=== PATIENT | female | born 1990 | race African-American/Black ===

== ENCOUNTER 2017-03-27 08:02 | Emergency (ER) | payer MEDICAID, OTHER ==
[~2017-03-27] VITALS: Ht 170.2 cm; Wt 100.0 kg
[2017-03-27 08:03] VITALS: BP 143/70; PULSE 78; RESP 20; TEMP 98.6; O2SAT 100
[2017-03-27] MEDS ORDERED: SODIUM CHLOR 0.9% 1000 ML INJ 1,000 ML IV ONE (08:21)
[2017-03-27 08:25] VITALS: RESP 16; O2SAT 100
[2017-03-27] MEDS ORDERED: ACETAMINOPHEN 325 MG TAB PO ONE (08:30)
[2017-03-27] MEDS ORDERED: diphenhydrAMINE HCL 50 MG/ML VIAL IVP ONE (08:30)
[2017-03-27] MEDS ORDERED: METOCLOPRAMIDE HCL 10 MG/2 ML VIAL IVP ONE (08:30)
[2017-03-27] MEDS ORDERED: SODIUM CHLORIDE 0.9% FLUSH 10 ML FLUSH IVF PRN (08:30)
--- NOTE | 2017-03-27 09:22 | PD ---
HPI Chief Complaint: Headache Time Seen by Provider: 08:15 Travel History International Travel<30 days: No Contact w/Intl Traveler<30days: No Traveled to known affect area: No History of Present Illness HPI 27-year-old has a right frontal headache. She woke up with it. Duration has been about 3-4 hours. She has a history of migraines and states this is not the worst headache she is experiencing. She's had no visual change. No vomiting. No neck stiffness reported. She reports she is 8 weeks . The pain is constant and moderate. Pnlg-hss-ivdsixn medications were not used. She's had no vaginal bleeding or discharge. Throbbing quality. No radiation. PFSH Past Medical History Medical History: Denies Significant Hx ?: LMP: JANUARY 29 2017 : 3 Para: 2 Miscarriage: 1 Past Surgical History Other Surgery: Yes (CYST EXCISION ANT. NECK) Social History Alcohol Use: No Tobacco Use: No Substance Use: No Allergies-Medications (Allergen,Severity, Reaction): Coded Allergies: No Known Allergies (Verified , 03/27/17) Reported Meds & Prescriptions Reported Meds & Active Scripts Active No Active Prescriptions or Reported Medications Review of Systems Except as stated in HPI: all other systems reviewed are Neg General / Constitutional: No: Fever Physical Exam Narrative GENERAL: 27-year-old female pleasant well-nourished well-developed no acute distress SKIN: Focused skin assessment warm/dry. HEAD: Atraumatic. Normocephalic. EYES: Pupils equal and round. No scleral icterus. No injection or drainage. ENT: No nasal bleeding or discharge. Mucous membranes pink and moist. NECK: Trachea midline. No JVD. CARDIOVASCULAR: Regular rate and rhythm. No murmur appreciated. RESPIRATORY: No accessory muscle use. Clear to auscultation. Breath sounds equal bilaterally. GASTROINTESTINAL: Abdomen soft, non-tender, nondistended. Hepatic and splenic margins not palpable. MUSCULOSKELETAL: No obvious deformities. No clubbing. No cyanosis. No edema. NEUROLOGICAL: Awake and alert. No obvious cranial nerve deficits. Motor grossly within normal limits. Normal speech. PSYCHIATRIC: Appropriate mood and affect; insight and judgment normal. Data Data Last Documented VS Vital Signs Date Time Temp Pulse Resp B/P Pulse Ox O2 Delivery O2 Flow Rate FiO2 03/27/17 08:25 16 100 Room Air 03/27/17 08:03 98.6 78 143/70 Vital signs reviewed Orders Ecg Monitoring (03/27/17 08:21) Iv Access Insert/Monitor (03/27/17 08:21) Oximetry (03/27/17 08:21) Sodium Chloride 0.9% Flush (Ns Flush) (03/27/17 08:30) Acetaminophen (Tylenol) (03/27/17 08:30) Diphenhydramine Inj (Benadryl Inj) (03/27/17 08:30) Metoclopramide Inj (Reglan Inj) (03/27/17 08:30) Sodium Chlor 0.9% 1000 Ml Inj (Ns 1000 M (03/27/17 08:21) MDM Medical Decision Making Medical Screen Exam Complete: Yes Emergency Medical Condition: Yes Medical Record Reviewed: Yes Differential Diagnosis Migraine, tension headache, cavernous sinus thrombosis, intracranial hemorrhage , meningitis Narrative Course Patient received abortive therapy here and had resolution of pain. Given that the patient states this headache is similar to priors and not as severe hypercoagulable-related headache in the setting of is considered sufficiently low pretest probability to avoid MRV and other high utilization studies. Patient has follow-up with Dr. Whaley of obstetrics in 2 days. Return precautions discussed. Patient was advised to avoid NSAIDs during . Tylenol okay. She knows she can return here any time if needed. Diagnosis Primary Impression: Headache Qualified Code: G44.89 - Other headache syndrome Referrals: DR WHALEY 2 days Additional Instructions: You have a choice when it comes to health care, and we are glad that you chose [facility]. Hopefully, we have met your expectations on today's visit. You are welcome to return to [facility] at any time, as we are committed to meeting the health care needs of our community. Med/Other Pt SpecificInfo: Prescription(s) given Scripts Acetaminophen (Tylenol)325 Mg [id number] Mg PO Q6H PRN (HEADACHE) #30 CAP Ref 0 Prov:Linwood Bradley MD 03/27/17 Multivit-Min W/Fe-FA ( Forte)1 Tab Tab1 Tab PO DAILY 90 Days Ref 2 Prov:Linwood Bradley MD 03/27/17 Disposition: 01 DISCHARGE HOME Condition: Stable Linwood Bradley MD March 27, 2017 09:22
[2017-03-27] MEDS ORDERED: ACET1CAP18 PO (09:28)
[2017-03-27] MEDS ORDERED: PRENTAB36 PO (09:28)
[2017-03-27 10:41] VITALS: RESP 16
== END 2017-03-27 10:53 | disposition home or self-care (01) ==
LOC: NEPC 08:02
DX: R51 Headache (principal)
CPT/HCPCS: 96361; 96374; 96375; 99283; J1200; J2765; J7030

== ENCOUNTER 2017-05-03 19:30 | Emergency (ER) | payer MEDICAID, OTHER ==
[~2017-05-03] VITALS: Ht 170.2 cm; Wt 97.7 kg
[~2017-05-03 19:30] MED LIST: ACET1CAP18 PO; PRENTAB36 PO
[2017-05-03 19:44] VITALS: BP 117/80; PULSE 115; RESP 20; TEMP 99.7; O2SAT 97
[2017-05-03] MEDS ORDERED: ACETAMIN 325 MG/BUTALBITAL 50 MG/CAFFEINE 40 MG TAB PO ONE (20:30)
[2017-05-03] MEDS ORDERED: SODIUM CHLORID 0.9% 500 ML INJ 500 ML IV ONE (20:30)
[2017-05-03] MEDS ORDERED: ONDANSETRON HCL 4 MG/2 ML VIAL IV PUSH ONE (20:30)
--- NOTE | 2017-05-03 20:32 | PD ---
HPI Chief Complaint: Headache Time Seen by Provider: 20:08 Travel History International Travel<30 days: No Contact w/Intl Traveler<30days: No Traveled to known affect area: No History of Present Illness HPI 27-year-old female complains of headache, nausea vomiting. Patient has history of migraine. Patient is 3 months . Patient has been seen by OB physician Dr. Aranda. Patient states that she started having headache this morning. Patient states that she has mild photophobia. Patient states that she has intermittent nausea vomiting with headache. Patient states that she feeling scratchy throat since last night. Patient states that she has mild nasal congestion today. Patient denies any fever chills. Patient denies any neck pain. Patient denies any coughing. Patient denies abdominal pain. Patient states that she has mild intermittent pelvic cramping with spotting since last week. Patient was seen at [facility] in [facility] and had blood tests and ultrasound done. Patient was seen in the office by Dr. Carty since then. Patient stated that nothing new with the pelvic cramping or vaginal spotting. Patient denies dysuria or frequency. PFSH Past Medical History ?: LMP: JANUARY 28 2017 : 3 Para: 2 Miscarriage: 1 Past Surgical History Other Surgery: Yes (CYST EXCISION ANT. NECK) Social History Alcohol Use: No Tobacco Use: No Substance Use: No Allergies-Medications (Allergen,Severity, Reaction): Coded Allergies: No Known Allergies (Verified , 03/27/17) Reported Meds & Prescriptions Reported Meds & Active Scripts Active Tylenol (Acetaminophen) 325 Mg Cap 650 Mg PO Q6H PRN Forte ( Multivit-Min W/Fe-FA) 1 Tab Tab 1 Tab PO DAILY 90 Days Review of Systems General / Constitutional: No: Fever Eyes: Positive: Photophobia, No: Visual changes HENT: Positive: Headaches Cardiovascular: No: Chest Pain or Discomfort Respiratory: No: Shortness of Breath Gastrointestinal: Positive: Nausea, Vomiting, No: Abdominal Pain Genitourinary: No: Dysuria Musculoskeletal: No: Pain Skin: No Rash Neurologic: No: Weakness Psychiatric: No: Depression Endocrine: No: Polydipsia Hematologic/Lymphatic: No: Easy Bruising Physical Exam Narrative GENERAL: Well-nourished, well-developed patient. SKIN: Focused skin assessment warm/dry. HEAD: Normocephalic. EYES: No scleral icterus. No injection or drainage. TM: Clear. Throat: Mild erythematous. No exudate or edema. NECK: Supple, trachea midline. No JVD or lymphadenopathy. No meningismus CARDIOVASCULAR: Regular rate and rhythm without murmurs, gallops, or rubs. RESPIRATORY: Breath sounds equal bilaterally. No accessory muscle use. GASTROINTESTINAL: Abdomen soft, non-tender, nondistended. MUSCULOSKELETAL: No cyanosis, or edema. BACK: Nontender without obvious deformity. No CVA tenderness. Neurologic exam normal. Data Data Last Documented VS Vital Signs Date Time Temp Pulse Resp B/P Pulse Ox O2 Delivery O2 Flow Rate FiO2 05/03/17 19:44 99.7 115 20 117/80 97 Orders Sodium Chlorid 0.9% 500 Ml Inj (Ns 500 M (05/03/17 20:30) Ondansetron Inj (Zofran Inj) (05/03/17 20:30) Zzhl-Dtejm-Xgdu 325-50-40 Mg (Fioricet 3 (05/03/17 20:30) Group A Rapid Strep Screen (05/03/17 20:26) Strep Culture (Group A) (05/03/17 20:30) MDM Medical Decision Making Medical Screen Exam Complete: Yes Emergency Medical Condition: Yes Interpretation(s) 21:26 PM. Strep screen negative. Differential Diagnosis Differential diagnosis including tension headache, plus headache, migraine headache, viral syndrome. Patient also complains of scratchy throat. Narrative Course 27-year-old female with headache and nausea vomiting and photophobia. History migraine. Patient's 3 months . Normal saline solution 500 cc IV bolus. Zofran 4 mg IV. Fioricet one tablet by mouth given. Diagnosis Primary Impression: Cephalgia Qualified Code: R51 - Nonintractable episodic headache, unspecified headache type Additional Impression: Pharyngitis Qualified Code: J02.9 - Pharyngitis, unspecified etiology Patient Instructions: General Instructions Additional Instructions: Take medications as directed. Tylenol for fever. Follow-up with personal physician and OB physician. Return if persistent problem or worse. Med/Other Pt SpecificInfo: Prescription(s) given Scripts Promethazine (Phenergan)25 Mg Asmhll11 Mg PO Q6H PRN (NAUSEA OR VOMITING) #12 TAB Ref 0 Prov:Fritz Ott MD 05/03/17 Ccsgrrrpkj-Dwsxkntdmteda-Oidlwyup (Fioricet)50-300-40 Mg Cap1-2 Cap PO Q6H PRN ( HEADACHE) #30 CAP Ref 0 Prov:Fritz Ott MD 05/03/17 Disposition: 01 DISCHARGE HOME Condition: Stable Fritz Ott MD May 03, 2017 20:32
[2017-05-03] MEDS ORDERED: PROM25TA10 PO (21:29)
[2017-05-03] MEDS ORDERED: BUTA1CAP PO (21:29)
[2017-05-03 21:51] VITALS: BP 122/74
== END 2017-05-03 21:54 | disposition home or self-care (01) ==
LOC: PHED 19:30
DX: R51 Headache (principal); J02.9 Acute pharyngitis, unspecified
CPT/HCPCS: 87081; 87880; 96361; 96374; 99284; J2405; J7040

== ENCOUNTER 2017-05-19 22:52 | Emergency (ER) | payer MEDICAID ==
[~2017-05-19] VITALS: Ht 170.2 cm; Wt 99.2 kg
[~2017-05-19 22:52] MED LIST changes: +BUTA1CAP PO; +PROM25TA10 PO
[2017-05-19 22:59] VITALS: BP 109/71; PULSE 85; RESP 18; TEMP 98.3; O2SAT 98
[2017-05-19] MEDS ORDERED: PREN1TAB60 PO (23:22)
--- NOTE | 2017-05-20 00:38 | PD ---
HPI Chief Complaint: Pain: Acute or Chronic Time Seen by Provider: 00:34 Travel History International Travel<30 days: No Contact w/Intl Traveler<30days: No Traveled to known affect area: No History of Present Illness HPI The patient noted a little painful lump on her left anterior tibial area, just medial to the tibia for the past one hour. She is worried this might be a blood clot. PFSH Past Medical History Tetanus Vaccination: > 5 Years Influenza Vaccination: No ?: LMP: 03=16-17 : 3 Para: 2 Miscarriage: 1 Past Surgical History Other Surgery: Yes (CYST EXCISION ANT. NECK) Social History Alcohol Use: No Tobacco Use: No Substance Use: No Allergies-Medications (Allergen,Severity, Reaction): Coded Allergies: No Known Allergies (Verified , 05/19/17) Reported Meds & Prescriptions Reported Meds & Active Scripts Active Reported Formula Tablet ( Vits #90/Iron Fum/FA) 1 Each Tablet 1 Tab PO DAILY Review of Systems Except as stated in HPI: all other systems reviewed are Neg Physical Exam Narrative GENERAL: Well-nourished, well-developed patient. SKIN: Focused skin assessment warm/dry. HEAD: Normocephalic. EYES: No scleral icterus. No injection or drainage. NECK: Supple, trachea midline. No JVD or lymphadenopathy. CARDIOVASCULAR: Regular rate and rhythm without murmurs, gallops, or rubs. RESPIRATORY: Breath sounds equal bilaterally. No accessory muscle use. GASTROINTESTINAL: Abdomen soft, non-tender, nondistended. MUSCULOSKELETAL: No cyanosis, or edema. There is a 2 cm diameter bruise on the left upper lower leg just medial to the tibia. No calf vein tenderness present and no cord is palpated in the calf. It is slightly tender and there is darkening of the skin which appears to be a small hematoma BACK: Nontender without obvious deformity. No CVA tenderness. Data Data Last Documented VS Vital Signs Date Time Temp Pulse Resp B/P Pulse Ox O2 Delivery O2 Flow Rate FiO2 05/19/17 22:59 98.3 85 18 109/71 98 MDM Medical Decision Making Medical Screen Exam Complete: Yes Emergency Medical Condition: Yes Medical Record Reviewed: Yes Differential Diagnosis Contusion skin, deep vein thrombosishighly unlikely, lesion of skin Narrative Course This appears to be a contusion of the skin. The patient denies any trauma but she may have bumped it or it could be simply a ruptured blood vessel. Diagnosis Primary Impression: Contusion of left lower leg Additional Instructions: This appears to be a contusion on the left lower leg. It could also be a small ruptured blood vessel. It is not a deep vein clot in this area. Follow-up with your primary care physician this week. No further treatment is needed other than simply watching how it develops. Med/Other Pt SpecificInfo: No Change to Meds Disposition: 01 DISCHARGE HOME Condition: Stable Lucien Leung MD May 20, 2017 00:38
== END 2017-05-20 00:45 | disposition home or self-care (01) ==
LOC: PHED 22:52
DX: S80.12XA Contusion of left lower leg, initial encounter (principal); X58.XXXA Exposure to other specified factors, initial encounter
CPT/HCPCS: 99281

== ENCOUNTER → 2017-06-10 | Outpatient (CLI) | payer MEDICAID ==
[~2017-06-10] MED LIST changes: -ACET1CAP18 PO; -BUTA1CAP PO; +PREN1TAB60 PO; -PRENTAB36 PO; -PROM25TA10 PO
== END ==
LOC: HPND 08:09
PROVIDERS: ATTEND Obstetrics & Gynecology
DX: O35.1XX0 Maternal care for (suspected) chromosomal abnormality in fetus, not applicable or unspecified (principal); O30.042 Twin pregnancy, dichorionic/diamniotic, second trimester; Z3A.19 19 weeks gestation of pregnancy
CPT/HCPCS: 76811; 76817

== ENCOUNTER → 2017-07-09 | Outpatient (CLI) | payer MEDICAID ==
[~2017-07-09] MED LIST changes: +BUTA1CAP5 PO; +REGL10TA5 PO
== END ==
LOC: HPND 13:11
PROVIDERS: ATTEND Obstetrics & Gynecology
DX: O30.042 Twin pregnancy, dichorionic/diamniotic, second trimester (principal); O35.1XX2 Maternal care for (suspected) chromosomal abnormality in fetus, fetus 2; Z3A.00 Weeks of gestation of pregnancy not specified
CPT/HCPCS: 76816

== ENCOUNTER 2017-07-29 12:53 | Emergency (ER) | payer MEDICAID ==
[~2017-07-29] VITALS: Ht 170.2 cm; Wt 102.7 kg
[~2017-07-29 12:53] MED LIST changes: -BUTA1CAP5 PO; -REGL10TA5 PO
[2017-07-29 12:56] VITALS: BP 127/72; PULSE 96; RESP 18; TEMP 98; O2SAT 98
[2017-07-29] MEDS ORDERED: BUTA1CAP5 PO (13:04)
[2017-07-29] MEDS ORDERED: SODIUM CHLOR 0.9% 1000 ML INJ 1,000 ML IV ONE (13:06)
[2017-07-29] MEDS ORDERED: METOCLOPRAMIDE HCL 10 MG/2 ML VIAL IVP ONE (13:15)
[2017-07-29] MEDS ORDERED: diphenhydrAMINE HCL 50 MG/ML VIAL IVP ONE (13:15)
[2017-07-29] MEDS ORDERED: SODIUM CHLORIDE 0.9% FLUSH 10 ML FLUSH IVF PRN (13:15)
[2017-07-29 13:30] VITALS: O2SAT 99
--- NOTE | 2017-07-29 13:32 | PD ---
HPI Chief Complaint: Headache Time Seen by Provider: 13:06 Travel History International Travel<30 days: No Contact w/Intl Traveler<30days: No Traveled to known affect area: No History of Present Illness HPI 27-year-old female patient with history of migraine headaches, currently 27 weeks with no history of preeclampsia or eclampsia or problems during , also per Dr. Aranda, presents to the ER today because of 3 days history of headaches that is a 8 out of 10. She denies any nausea or vomiting, fevers, stiff neck, or any other symptoms. Modifying Factors: None Associated Signs & Symptoms: Headaches Risk Factors: History of migraine headaches, PFSH Past Medical History Medical History: Denies Significant Hx Tetanus Vaccination: Unknown Influenza Vaccination: No ?: LMP: 01/2017 : 3 Para: 2 Miscarriage: 1 Past Surgical History Other Surgery: Yes (CYST EXCISION ANT. NECK) Social History Alcohol Use: No Tobacco Use: No Substance Use: No Allergies-Medications (Allergen,Severity, Reaction): Coded Allergies: No Known Allergies (Verified , 07/29/17) Reported Meds & Prescriptions Reported Meds & Active Scripts Active Reported Angakiodvc-Wvfedyhymsfad-Waugojmj 50-300-40 Mg Cap 1-2 Cap PO Q6HR PRN Do not exceed 6 capsules/day. Formula Tablet ( Vits #90/Iron Fum/FA) 1 Each Tablet 1 Tab PO DAILY Review of Systems Except as stated in HPI: all other systems reviewed are Neg Physical Exam Narrative GENERAL: Well-developed young gravid -[place] female patient currently in no acute distress. Awake and oriented 3. Sitting in a lighted room comfortably. No photophobia. SKIN: Focused skin assessment warm/dry. HEAD: Atraumatic. Normocephalic. EYES: Pupils equal and round. No scleral icterus. No injection or drainage. ENT: No nasal bleeding or discharge. Mucous membranes pink and moist. NECK: Trachea midline. No JVD. Supple. CARDIOVASCULAR: Regular rate and rhythm. No murmur appreciated. RESPIRATORY: No accessory muscle use. Clear to auscultation. Breath sounds equal bilaterally. GASTROINTESTINAL: Abdomen gravid with uterine fundus well above the umbilicus, non-tender, nondistended. Hepatic and splenic margins not palpable. MUSCULOSKELETAL: No obvious deformities. No clubbing. No cyanosis. No edema. NEUROLOGICAL: Awake and alert. No obvious cranial nerve deficits. Motor grossly within normal limits. Normal speech. PSYCHIATRIC: Appropriate mood and affect; insight and judgment normal. Data Data Last Documented VS Vital Signs Date Time Temp Pulse Resp B/P (MAP) Pulse Ox O2 Delivery O2 Flow Rate FiO2 07/29/17 14:20 83 14 91/58 (69) 100 Room Air 07/29/17 12:56 98.0 Orders Orders Complete Blood Count With Diff (07/29/17 13:06) Comprehensive Metabolic Panel (07/29/17 13:06) Ecg Monitoring (07/29/17 13:06) Iv Access Insert/Monitor (07/29/17 13:06) Oximetry (07/29/17 13:06) Sodium Chloride 0.9% Flush (Ns Flush) (07/29/17 13:15) Diphenhydramine Inj (Benadryl Inj) (07/29/17 13:15) Metoclopramide Inj (Reglan Inj) (07/29/17 13:15) Sodium Chlor 0.9% 1000 Ml Inj (Ns 1000 M (07/29/17 13:06) Ua Includes Microscopic (07/29/17 13:06) Labs Laboratory Tests Test 07/29/17 13:30 White Blood Count 14.4 TH/MM3 Red Blood Count 4.00 MIL/MM3 Hemoglobin 10.8 GM/DL Hematocrit 33.0 % Mean Corpuscular Volume 82.5 FL Mean Corpuscular Hemoglobin 27.0 PG Mean Corpuscular Hemoglobin Concent 32.8 % Red Cell Distribution Width 12.3 % Platelet Count 249 TH/MM3 Mean Platelet Volume 7.6 FL Neutrophils (%) (Auto) 73.7 % Lymphocytes (%) (Auto) 15.9 % Monocytes (%) (Auto) 9.4 % Eosinophils (%) (Auto) 0.6 % Basophils (%) (Auto) 0.4 % Neutrophils # (Auto) 10.5 TH/MM3 Lymphocytes # (Auto) 2.3 TH/MM3 Monocytes # (Auto) 1.4 TH/MM3 Eosinophils # (Auto) 0.1 TH/MM3 Basophils # (Auto) 0.1 TH/MM3 CBC Comment DIFF FINAL Differential Comment Urine Collection Type VOIDED Urine Color YELLOW Urine Turbidity SLIGHT Urine pH 6.5 Urine Specific [place] 1.022 Urine Protein NEG mg/dL Urine Glucose (UA) NEG mg/dL Urine Ketones NEG mg/dL Urine Occult Blood NEG Urine Nitrite NEG Urine Bilirubin NEG Urine Leukocyte Esterase TRACE Urine WBC 0-2 /hpf Urine Squamous Epithelial Cells 6-8 /hpf Urine Bacteria FEW /hpf Microscopic Urinalysis Comment Blood Urea Nitrogen 6 MG/DL Creatinine 0.77 MG/DL Random Glucose 79 MG/DL Total Protein 7.3 GM/DL Albumin 2.6 GM/DL Calcium Level 8.5 MG/DL Alkaline Phosphatase 114 U/L Aspartate Amino Transf (AST/SGOT) 19 U/L Alanine Aminotransferase (ALT/SGPT) 23 U/L Total Bilirubin 0.2 MG/DL Sodium Level 136 MEQ/L Potassium Level 3.8 MEQ/L Chloride Level 104 MEQ/L Carbon Dioxide Level 24.6 MEQ/L Anion Gap 7 MEQ/L Estimat Glomerular Filtration Rate 109 ML/MIN MDM Medical Decision Making Medical Screen Exam Complete: Yes Emergency Medical Condition: Yes Medical Record Reviewed: Yes Interpretation(s) Laboratory Tests Test 07/29/17 13:30 White Blood Count 14.4 TH/MM3 (4.0-11.0) Hemoglobin 10.8 GM/DL (11.6-15.3) Hematocrit 33.0 % (35.0-46.0) Neutrophils (%) (Auto) 73.7 % (16.0-70.0) Monocytes (%) (Auto) 9.4 % (0.0-8.0) Neutrophils # (Auto) 10.5 TH/MM3 (1.8-7.7) Monocytes # (Auto) 1.4 TH/MM3 (0-0.9) Urine Leukocyte Esterase TRACE (NEG) Urine Squamous Epithelial Cells 6-8 /hpf (0-5) Urine Bacteria FEW /hpf (NONE) Blood Urea Nitrogen 6 MG/DL (7-18) Albumin 2.6 GM/DL (3.4-5.0) Differential Diagnosis headaches: Migraine headaches versus metabolic issues versus dehydration Narrative Course Lab work shows significant leukocytosis. UA shows no signs of UTI. At this point, patient had been given Reglan and IV fluids in the ER. On reevaluation at 2:20 PM, she is feeling improved. My plan would be to release her with follow-up to [facility]. Return for any worsening in symptoms as necessary. The plan has been discussed with her and she states understanding. Diagnosis Primary Impression: Cephalgia Med/Other Pt SpecificInfo: Prescription(s) given Scripts Metoclopramide (Reglan) 10 Mg Tab 10 MG PO QID Y for MIGRAINE HEADACHE, #15 TAB 0 Refills Prov: Rian Farris MD 07/29/17 Disposition: 01 DISCHARGE HOME Condition: Stable Rian Farris MD Jul 29, 2017 13:32
[2017-07-29 13:44] LABS: AUTOMATED NEUTROPHIL # 10.5 TH/MM3 (1.8-7.7); BASOPHIL # 0.1 TH/MM3 (0-0.2); BASOPHIL % 0.4 % (0.0-2.0); EOSINOPHIL # 0.1 TH/MM3 (0-0.4); EOSINOPHIL % 0.6 % (0.0-4.0); HEMO FLAGS DIFF FINAL; LYMPH % 15.9 % (9.0-44.0); LYMPHOCYTE # 2.3 TH/MM3 (1.0-4.8); MEAN CELL VOLUME 82.5 FL (80.0-100.0); MEAN CORPUSCULAR HGB CONC 32.8 % (32.0-36.0); MONO % 9.4 % (0.0-8.0); NEUT % 73.7 % (16.0-70.0); PLATELET COUNT 249 TH/MM3 (150-450); RED CELL DISTRIBUTION WIDTH 12.3 % (11.6-17.2); WHITE BLOOD COUNT 14.4 TH/MM3 (4.0-11.0)
[2017-07-29 13:50] LABS: CHLORIDE 104 MEQ/L (98-107); POTASSIUM 3.8 MEQ/L (3.5-5.1); SODIUM (NA) 136 MEQ/L (136-145)
[2017-07-29 13:51] LABS: BLOOD, URINE NEG (NEG); GLUCOSE,URINE NEG (NEG); KETONE, URINE NEG (NEG); NITRITE,URINE NEG (NEG); PH, URINE 6.5 (5.0-8.5)
[2017-07-29 13:53] LABS: ANION GAP 7 MEQ/L (5-15); BICARBONATE 24.6 MEQ/L (21.0-32.0)
[2017-07-29 13:54] LABS: BLOOD UREA NITROGEN 6 MG/DL (7-18)
[2017-07-29 13:56] LABS: ALT (GPT) 23 U/L (10-53)
[2017-07-29 13:57] LABS: AST (GOT) 19 U/L (15-37); GLOMERULAR FILTRATION RATE 109 ML/MIN (>89)
[2017-07-29 13:58] LABS: TOTAL BILIRUBIN ADULT 0.2 MG/DL (0.2-1.0)
[2017-07-29 13:59] LABS: ALKALINE PHOSPHATASE 114 U/L (45-117)
[2017-07-29 14:04] LABS: METHOD OF COLLECTION VOIDED; URINE COLOR YELLOW (YELLW/STRAW)
[2017-07-29 14:05] LABS: WBC, URINE 0-2 /hpf (0-5)
[2017-07-29 14:06] LABS: BACTERIA, URINE FEW /hpf
[2017-07-29 14:20] VITALS: BP 91/58; PULSE 83; RESP 14; O2SAT 100
[2017-07-29] MEDS ORDERED: REGL10TA5 PO (14:28)
== END 2017-07-29 14:35 | disposition home or self-care (01) ==
LOC: PHED 12:53
DX: O26.892 Other specified pregnancy related conditions, second trimester (principal); R51 Headache; D72.829 Elevated white blood cell count, unspecified; Z86.69 Personal history of other diseases of the nervous system and sense organs; Z3A.27 27 weeks gestation of pregnancy
CPT/HCPCS: 80053; 81001; 85025; 96361; 96374; 96375; 99284; J1200; J2765; J7030

== ENCOUNTER → 2017-08-07 | Outpatient (CLI) | payer MEDICAID ==
[~2017-08-07] MED LIST changes: +BUTA1CAP5 PO; +REGL10TA5 PO
== END ==
LOC: HPND 08:52
PROVIDERS: ATTEND Obstetrics & Gynecology
DX: O30.043 Twin pregnancy, dichorionic/diamniotic, third trimester (principal); O40.3XX2 Polyhydramnios, third trimester, fetus 2; O35.1XX2 Maternal care for (suspected) chromosomal abnormality in fetus, fetus 2; Z3A.00 Weeks of gestation of pregnancy not specified
CPT/HCPCS: 76816

== ENCOUNTER → 2017-09-04 | Outpatient (CLI) | payer MEDICAID | LOC: HPND 08:54 | PROVIDERS: ATTEND Obstetrics & Gynecology | DX: O30.043 Twin pregnancy, dichorionic/diamniotic, third trimester (principal); Z3A.31 31 weeks gestation of pregnancy | CPT/HCPCS: 76816 ==